=== PATIENT | female | born 1960 | race Caucasian/White ===

== ENCOUNTER 2017-01-10 16:22 | Emergency (ER) | payer SELFPAY ==
[2017-01-10 17:43] VITALS: BP 124/72
--- NOTE | 2017-01-10 17:49 | UC ---
Back Pain HPI - HPI Summary HPI Summary: C/O falling off chair, hitting back on the handle. Chair tipped by co-worker. 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 Negative: Weakness, Tingling Related History: Occupational Injury - Allergies/Home Medications Allergies/Adverse Reactions: Allergies Allergy/AdvReac Type Severity Reaction Status Date / Time No Known Allergies Allergy Verified 01/10/17 17:38 PMH/Surg Hx/FS Hx/Imm Hx Previously Healthy: Yes Psychological History: Anxiety - Surgical History Surgical History: Yes Surgery Procedure, Year, and Place: tubal - Family History Known Family History: Positive: Cardiac Disease, Diabetes - Social History Occupation: Employed Full-time Lives: With Family Alcohol Use: Daily Alcohol Amount: 2 glasses of wine daily Substance Use Type: None Smoking Status (MU): Never Smoked Tobacco - Immunization History Most Recent Influenza Vaccination: UNSURE Most Recent Tetanus Shot: UNSURE Most Recent Pneumonia Vaccination: UNSURE Review of Systems Skin: Bruising - low back Musculoskeletal: Arthralgia - low back Is Patient Immunocompromised?: No All Other Systems Reviewed And Are Negative: Yes Physical Exam Triage Information Reviewed: Yes Appearance: Well-Appearing, No Pain Distress, Well-Nourished Vital Signs: Initial Vital Signs Temp 98.5 F 01/10/17 17:39 Pulse 73 01/10/17 17:39 Resp 16 01/10/17 17:39 BP 124/72 01/10/17 17:39 Pulse Ox 100 01/10/17 17:39 Vital Signs Reviewed: Yes Eyes: Positive: Conjunctiva Clear Neck exam: Normal Respiratory Exam: Normal Cardiovascular Exam: Normal Abdominal Exam: Normal Musculoskeletal: Positive: ROM Limited @ - Lumbar spine pain with extension and mildly antalgic gait, Other: - No pelvic tenderness or tenderness over the lumbosacral spine Neurological Exam: Normal Psychological Exam: Normal Skin: Positive: Other - Bruise below right PSIS running posterior/ anterior 13x5cm with tenderness over the bruise. Back Pain Course/Dx - Differential Dx/Diagnosis Differential Diagnosis/HQI/PQRI: Arthritis, Fracture, Strain, Sprain Provider Diagnoses: Contusion right lower back. Discharge - Discharge Plan Condition: Stable Disposition: HOME Patient Education Materials: Contusion in Adults (ED) Additional Instructions: Ice for the first 48 hours, now heat can be used.
== END 2017-01-10 18:03 | disposition home or self-care (01) ==
LOC: UCCORT 16:22
DX: S30.0XXA Contusion of lower back and pelvis, initial encounter (principal); F41.9 Anxiety disorder, unspecified; W07.XXXA Fall from chair, initial encounter
CPT/HCPCS: 99211; G0463